=== PATIENT | male | born 1950 | race Two or more races ===

== ENCOUNTER → 2017-09-10 | Emergency (ER) | payer OTHER ==
[~2017-09-10] VITALS: Ht 167.6 cm; Wt 72.6 kg
[~2017-09-10] MED LIST: AMOX1TAB5 PO; KETO10TA2 PO
== END | disposition home or self-care (01) ==
LOC: ER 01:45
DX: S62.625A Displaced fracture of middle phalanx of left ring finger, initial encounter for closed fracture (principal); S61.225A Laceration with foreign body of left ring finger without damage to nail, initial encounter; W26.8XXA Contact with other sharp object(s), not elsewhere classified, initial encounter; Y93.55 Activity, bike riding; Y92.89 Other specified places as the place of occurrence of the external cause; Y99.8 Other external cause status